=== PATIENT | male | born 1980 | race Caucasian/White ===

== ENCOUNTER → 2019-07-11 | Outpatient (CLI) | payer BC ==
--- NOTE | 2019-07-12 07:41 | US ---
EXAMINATION TYPE: US scrotum with doppler. Grayscale and color Doppler Duplex imaging performed of rhea whiteside scrotum. DATE OF EXAM: 07/11/2019 COMPARISON: NONE CLINICAL HISTORY: N50.819 testicular pain. EXAM MEASUREMENTS: TESTICLES: Right Testicle: 4.5 x 2.4 x 2.8 cm Left Testicle: 4.5 x 2.5 x 2.7 cm EPIDIDYMIS HEAD: Right Epididymis: 1.1 cm Left Epididymis: 1.0 cm cyst measuring 0.4cm Doppler performed to assess for testicular vascularity; good bilateral color flow and waveforms are s een. There is no evidence of testicular torsion. There is slightly asymmetric flow with greater roma w seen on the left than right. Presence of hydroceles: Trace bilateral Presence of varicoceles: no IMPRESSION: Slightly greater than left than right vascular flow. Correlate for left sided orchitis (u nspecified laterality of pain). Trace bilateral hydroceles are also seen.
== END | disposition home or self-care (01) ==
LOC: RADUSWWP 16:19
PROVIDERS: ATTEND Family Medicine
DX: N50.819 Testicular pain, unspecified (principal)
CPT/HCPCS: 76870; 93975

== ENCOUNTER 2024-12-10 06:56 | Day surgery (SDC) | payer BC, OTHER ==
[2024-12-09 11:59] VITALS: BMI 27.3
[2024-12-10 07:13] VITALS: RESP 16; TEMP 97.2
[2024-12-10] MEDS: LACTATED RINGERS 1,000 ML IV SCH (07:19)
[2024-12-10] MEDS: ONDANSETRON 4 MG/2 ML VIAL IVP STA (07:20)
[2024-12-10] MEDS: IV FLUID CONTINUATION 1,000 ML IV ONE (07:23)
[2024-12-10] MEDS ORDERED: fentaNYL (PF) 50 MCG/ML 2 ML AMP ONE (07:47)
[2024-12-10] MEDS ORDERED: MIDAZOLAM 2 MG/2 ML VIAL ONE (07:47)
[2024-12-10] MEDS ORDERED: PROPOFOL 10 MG/ML 20 ML VIAL IV ONE (07:47)
[2024-12-10] MEDS ORDERED: LIDOCAINE 2% (PF) 20 MG/ML 5 ML VIAL ONE (07:47)
--- NOTE | 2024-12-10 08:08 | P.PCN ---
Date of Procedure: 12/10/24 Procedure(s) Performed: Brief history: Patient is a pleasant 44-year-old white male scheduled for an elective upper endoscopy as well as colonoscopy as a part of evaluation of abdominal pain and chronic diarrhea of 15 years duration Procedure performed: Esophagogastroduodenoscopy with biopsy Colonoscopy with biopsy and snare polypectomy. Preoperative diagnosis: Abdominal pain Chronic diarrhea Anesthesia: MAC Procedure: After informed consent was obtained from the patient was brought into the endoscopy unit and IV sedation was administered by anesthesia under continuous monitoring. Initially upper endoscopy was done. The Olympus GF 160 video endoscope was inserted inserted into the mouth and esophagus intubated without any difficulty and was gradually advanced into the stomach and duodenum and carefully examined. The bulb and second part of the duodenum appeared normal. Biopsies were done from the duodenum rule out celiac disease. The scope was then withdrawn into the stomach adequately insufflated with air and upon careful examination the antrum linear erosive erythema present with gastritis and biopsies with this area. Mucosal body, cardia and fundus appeared normal. The scope was then withdrawn into the esophagus. Small hiatal hernia noted. The GE junction was located at 40 cm to the incisors. It appeared regular 2 small tongues of Caceres's appearing mucosa extending 2 to 3 mm proximal to the GE junction which was biopsied.. Rest of the esophagus appeared normal. Patient tolerated the procedure well. At this time the patient continued to remain sedation. Initial digital rectal examination was normal. Olympus CF 160 video colonoscope was then inserted into the rectum and gradually advanced to the cecum without any difficulty. Careful examination was performed as the scope was gradually being withdrawn. The prep was excellent. The cecum, appeared normal. Descending colon did not multiple any polyps approximately 5 with number each measuring 3 mm in size that were removed by cold snare polypectomy. Rest of the ascending colon, transverse colon, descending colon, sigmoid colon and rectum appeared normal. Random biopsies were done from ascending and descending colon to rule out microscopic/collagenous colitis. Retroflexion was performed in the rectum and no lesions were noted. Patient tolerated the procedure well. Impression: 1. Upper endoscopy revealed mild antral gastritis, small hiatal hernia and short segment Caceres's esophagus 2. Colonoscopy revealed multiple linear polyps measuring 3 mm in size in the ascending colon status post polypectomy. Rest of the colon appeared normal Recommendations: Findings of this examination were discussed with the patient as well as his family. He was advised to follow with the biopsy results. Follow-up in the office in 2 weeks. If the biopsy reveals adenoma he can have repeat colonoscopy in 3 years.
[2024-12-10 08:50] VITALS: BP 113/75; PULSE 71
== END 2024-12-10 09:17 | disposition home or self-care (01) ==
LOC: ORWHC2ENDO 06:56
PROVIDERS: ATTEND Internal Medicine Gastroenterology
DX: D12.2 Benign neoplasm of ascending colon (principal); K20.90 Esophagitis, unspecified without bleeding; K44.9 Diaphragmatic hernia without obstruction or gangrene; K22.70 Barrett's esophagus without dysplasia; K29.50 Unspecified chronic gastritis without bleeding
CPT/HCPCS: 45380; 45385; 43239; J2250; J2405; J3010; J2704; J2003; 88305